=== PATIENT | male | born 1955 | race Caucasian/White ===

== ENCOUNTER 2019-03-24 01:51 | Emergency (ER) | payer SELFPAY ==
[2019-03-24] MEDS ORDERED: predniSONE 10 MG Tab PO ONE (02:24)
[2019-03-24] MEDS ORDERED: Ketorolac 60 MG/2 ML SDV IM ONE (02:24)
--- NOTE | 2019-03-24 02:31 | EDM.PDOC ---
ED HPI GENERAL MEDICAL PROBLEM - General Chief Complaint: Back Pain or Injury Stated Complaint: BACK PAIN Time Seen by Provider: 03/24/19 02:12 - History of Present Illness INITIAL COMMENTS - FREE TEXT/NARRATIVE: HISTORY AND PHYSICAL: History of present illness: The patient is a 63-year-old male who follows with Dr. Ibarra at [facility] and has a long-standing history of episodic hip and lower back pain for which he saw his provider in August of this year and was scheduled to have an MRI which he was unable to perform due to claustrophobia and now presents with 3 days of mid lower back pain without radiation. The patient says that in the past he has been able to do stretching exercises when these events occur and he' s able to open up his back and hips and takes [id number] ibuprofen. Over the last 3 days he has had more and more difficulty as this is not working and he is having issues with position changing worse when he is going from laying down to standing up. He's not having any weakness numbness or tingling in his lower extremities and has had no recent trauma. He has no flank pain or urinary symptoms and no bowel or bladder disturbances. The pain does not radiate to his back or legs. The patient has tried 2 doses of ibuprofen 600 mg today with the last dose at 6 PM. He has not connected with his provider about this recurrent problem. The patient says he was unable to perform the MRI in August because he is very claustrophobic and he did not have any sedating meds and the pain seemed to improve so he did not pursue it any farther. He has never been diagnosed with disc issues in his back. He describes the pain as a deep pain which is worse with these position changes. He does deny any current hip pain and says that the pain is experiencing is in the lower back in the midline and does not localize right or left Review of systems: As per history of present illness and below otherwise all systems reviewed and negative. Past medical history: As per history of present illness and as reviewed below otherwise noncontributory. Surgical history: As per history of present illness and as reviewed below otherwise noncontributory. Social history: No reported history of drug or alcohol abuse. Family history: As per history of present illness and as reviewed below otherwise noncontributory. Physical exam: General: Well-developed well-nourished mildly overweight man who is nontoxic and is slow to position change but is able to perform these duties without distends. Vital signs are noted by me HEENT: Atraumatic, normocephalic, negative for conjunctival pallor or scleral icterus, mucous membranes moist, throat clear, neck supple, nontender, trachea midline. Lungs: Clear to auscultation, breath sounds equal bilaterally, chest nontender. Heart: S1S2, regular rate and rhythm no overt murmurs Abdomen: Soft, nondistended, nontender. Negative for masses or hepatosplenomegaly. Negative for costovertebral tenderness. Pelvis: Stable nontender. Genitourinary: Deferred. Rectal: Deferred. Extremities: Atraumatic, negative for cords or calf pain. Neurovascular unremarkable. Neuro: Awake, alert, oriented. Cranial nerves II through XII unremarkable. Cerebellum unremarkable. Motor and sensory unremarkable throughout. Exam nonfocal. Dorsi and plantar flexion is intact 5/5 bilaterally inclusive of the great toe and patellar reflexes are +2 over 4 bilaterally. Tone is normal throughout. Back: There are no midline step-offs in his defects of the thoracic or lumbar spine no posterior pelvis or SI joint tenderness and there is no reproducible paraspinal spasm or tenderness that I can appreciate with palpation. Diagnostics: We discussed plain x-rays as well as CT scan of the lumbar spine but patient is aware that these tests will be limited in diagnosing disc or nerve issues and will only tell us about disc spaces and degenerative changes. He would like to defer at this time Therapeutics: Norflex Toradol prednisone We discussed that the patient does need close follow-up with his provider Dr. Ibarra and I will give him muscle relaxers and anti-inflammatories and a Medrol Dosepak for home. At this point he does not meet criteria for an emergent MRI nor are we capable of performing that and he is made aware of this. I have offered him x-ray plain as well as CT scan but it informed that these will be less informative than an MRI and will only give us some big picture ideas of the disc space and degenerative changes in the spine. He would prefer to try symptomatic management of this pain and follow-up with his provider and do the appropriate test as needed. I've warned him on reasons to return to the ED and concerns. Impression: Lumbar back pain, acute on chronic Definitive disposition and diagnosis as appropriate pending reevaluation and review of above. Lower Back Pain Score (Numeric/FACES): 9 - Related Data Allergies Allergy/AdvReac Type Severity Reaction Status Date / Time No Known Allergies Allergy Verified 03/24/19 01:58 Home Meds: Home Meds . [No Known Home Meds] 03/24/19 [History] Past Medical History Cardiovascular History: Reports: None Respiratory History: Reports: None Gastrointestinal History: Reports: None Genitourinary History: Reports: None Musculoskeletal History: Reports: None Neurological History: Reports: None Psychiatric History: Reports: None Endocrine/Metabolic History: Reports: None Hematologic History: Reports: None Immunologic History: Reports: None Oncologic (Cancer) History: Reports: None Dermatologic History: Reports: None - Infectious Disease History Infectious Disease History: Reports: Chicken Pox, Shingles - Past Surgical History Head Surgeries/Procedures: Reports: None HEENT Surgical History: Reports: ROSCOE Social & Family History - Tobacco Use Smoking Status *Q: Former Smoker Used Tobacco, but Quit: Yes Month/Year Tobacco Last Used: 2001 - Recreational Drug Use Recreational Drug Use: No ED ROS GENERAL - Review of Systems Review Of Systems: ROS reveals no pertinent complaints other than HPI. ED EXAM, GENERAL - Physical Exam Exam: See Below (See dictation) Course - Vital Signs Last Recorded V/S: Last Vital Signs Temp 35.6 C 03/24/19 01:56 Pulse 67 03/24/19 01:56 Resp BP 142/59 H 03/24/19 01:56 Pulse Ox 100 03/24/19 01:56 - Orders/Labs/Meds Meds: Medications Discontinued Medications Generic Name Dose Route Start Last Admin Trade Name Carmen PRN Reason Stop Dose Admin Ketorolac Tromethamine 60 mg 03/24/19 02:24 Toradol IM 03/24/19 02:25 ONETIME ONE Orphenadrine Citrate 60 mg 03/24/19 02:24 Norflex IM 03/24/19 02:25 ONETIME ONE Prednisone 10 mg 03/24/19 02:24 Prednisone PO 03/24/19 02:25 ONETIME ONE Departure - Departure Time of Disposition: 02:31 Disposition: Home, Self-Care 01 Condition: Fair Clinical Impression: Acute exacerbation of chronic low back pain - Discharge Information Referrals: Basim Ibarra MD [Primary Care Provider] - Additional Instructions: The following information is given to patients seen in the emergency department who are being discharged to home. This information is to outline your options for follow-up care. We provide all patients seen in our emergency department with a follow-up referral. The need for follow-up, as well as the timing and circumstances, are variable depending upon the specifics of your emergency department visit. If you don't have a primary care physician on staff, we will provide you with a referral. We always advise you to contact your personal physician following an emergency department visit to inform them of the circumstance of the visit and for follow-up with them and/or the need for any referrals to a consulting specialist. The emergency department will also refer you to a specialist when appropriate. This referral assures that you have the opportunity for followup care with a specialist. All of these measure are taken in an effort to provide you with optimal care, which includes your followup. Under all circumstances we always encourage you to contact your private physician who remains a resource for coordinating your care. When calling for followup care, please make the office aware that this follow-up is from your recent emergency room visit. If for any reason you are refused follow-up, please contact the [facility] emergency department at and ask to speak to the emergency department charge nurse. [address] [place] [address] Ibarra or one of his colleagues for further care and evaluation of this acute episode of your lower back pain as you may need to pursue imaging such as MRI on an outpatient basis. Please take medications as prescribed only taking the muscle relaxers when you're at home as they may make you drowsy or sleepy. To all body movements and position changes slowly and he may apply heat or ice to areas as this may help somewhat. Continue to monitor the symptoms and return to ER as needed and as discussed. Oftentimes this pain will take several days to show significant improvement but please be in close contact with your provider about this pain and outpatient management plan
== END 2019-03-24 02:53 | disposition home or self-care (01) ==
LOC: MW.ED 01:51
DX: G89.29 Other chronic pain (principal); M54.5 Low back pain; Z87.891 Personal history of nicotine dependence
CPT/HCPCS: 96372; 99283; A9270; J1885; J2360

== ENCOUNTER 2022-06-28 08:53 | Day surgery (SDC) | payer MEDICARE, OTHER ==
[~2022-06-28 08:53] MED LIST: Lactated Ringers 1,000 ML IV SCH
[2022-06-28] MEDS ORDERED: Propofol 200 MG/20 ML SDV ONE (09:17)
[2022-06-28] MEDS ORDERED: Lidocaine 2% 5 ML SDV ONE (09:17)
[2022-06-28] MEDS ORDERED: fentaNYL 100 MCG/2 ML SDV ONE (09:17)
== END 2022-06-28 11:40 | disposition home or self-care (01) ==
LOC: MW.SDS 08:53
PROVIDERS: ATTEND Surgery
DX: Z12.11 Encounter for screening for malignant neoplasm of colon (principal); D12.2 Benign neoplasm of ascending colon; E66.9 Obesity, unspecified; Z87.891 Personal history of nicotine dependence; Z68.31 Body mass index [BMI] 31.0-31.9, adult; Z98.890 Other specified postprocedural states
CPT/HCPCS: 45380; J2704; J3010; J7120; 00812; 88305; J3490